=== PATIENT | female | born 1995 | race Caucasian/White ===

== ENCOUNTER 2016-11-07 18:03 | Emergency (ER) | payer BC ==
[2016-11-07 18:30] VITALS: TEMP 97.7; O2SAT 95
--- NOTE | 2016-11-07 18:30 | UCPHY ---
H & P Patient Type: New HPI/ROS: HPI CHIEF COMPLAINT: Nausea, vomiting, diarrhea, roommate has C diff HISTORY OF PRESENT ILLNESS: This patient very pleasant 19-year-old female, denies any significant medical history, she does have a recent wrist fracture, she presents to the urgent care with persistent nausea vomiting and diarrhea. She tells me this is nonbloody in no hematemesis. Diarrhea has been watery stools. Patient tells me she only had 2 episodes of vomiting. Nonbilious no no blood, have watery diarrhea multiple bouts. She states she has a little bit concerned because her roommate was diagnosed with C diff. Patient has not had a fever she denies any abdominal pain she does tell me her abdomen is rumbling Past Medical History: Denies medical history Past Surgical History: Cardiac surgery when she was a however does not remember exactly which she had surgery on Social History: Denies daily use of drugs alcohol tobacco products Family History: Noncontributory ROS REVIEW OF SYSTEMS: A comprehensive 10 point review of systems is otherwise negative aside from elements mentioned in the history of present illness. Exam Constitutional appears well nontoxic triage nursing summary reviewed, vital signs reviewed, awake/alert. Eyes normal conjunctivae and sclera, EOMI, PERRLA. HENT normal inspection, atraumatic, moist mucus membranes, no epistaxis, neck supple/ no meningismus, no raccoon eyes. Respiratory clear to auscultation bilaterally, normal breath sounds, no respiratory distress, no wheezing. Cardiovascular rate normal, regular rhythm, no murmur, no edema, distal pulses normal. Gastrointestinal soft, non-tender, no rebound, no guarding, normal bowel sounds, no distension, no pulsatile mass. Genitourinary no CVA tenderness. Musculoskeletal no midline vertebral tenderness, full range of motion, no calf swelling, no tenderness of extremities, no meningismus, good pulses, neurovascularly intact. Skin pink, warm, & dry, no rash, skin atraumatic. Neurologic awake, alert and oriented x 3, AAOx3, moves all 4 extremities equally, motor intact, sensory intact, CN II-XII intact, normal cerebellar, normal vision, normal speech. Psychiatric normal mood/affect. Heme/Lymph/Immune no lymphadenopathy. Differential diagnosis includes but is not limited to and in no particular order : Dehydration, electrolyte abnormality, C diff Bowel obstruction, appendicitis , gallbladder disease, diverticulitis, colitis, enteritis, perforated viscus, gastritis, GERD, esophagitis, urinary tract infection, pyelonephritis, kidney stones Medical Decision Making: this patient had an IV established receive IV fluids Zofran for nausea, she does not have any pain, check blood work including CBC, LFTs, lipase, electrolytes, C diff and stool studies. Re-evaluation: 2037: re-evaluation at this time this patient is resting comfortably abdomen remained soft she is not vomiting. Blood work has been reviewed. Stool studies have been sent I did explain to the patient that she will need to call here tomorrow for her C diff results. She is feeling better after IV fluids. She has not had any vomiting here. She was able to provide a stool sample. She feels comfortable going home prescription for Zofran she understands return to the emergency room urgent care presented worsening symptoms questions or concerns. Including worsening abdominal pain, fever, vomiting Source: Patient - Family History Significant Family History: No pertinent family hx Constitutional: Initial Vital Signs Temperature (C) 36.5 C 11/07/16 18:28 Heart Rate 102 H 11/07/16 18:28 Respiratory Rate 20 11/07/16 18:28 Blood Pressure 130/74 H 11/07/16 18:28 O2 Sat (%) 95 11/07/16 18:28 O2 Delivery Mode Room Air Allergies/Adverse Reactions: meperidine HCl [From Demerol] Allergy (Verified 11/07/16 18:27) morphine Allergy (Verified 11/07/16 18:27) Home Medications: Medication Instructions Recorded Adderall 10 MG (*) 11/07/16 Bcp 11/07/16 Ondansetron HCl [Zofran] 4 mg PO Q4-6PRN PRN #10 tablet 11/07/16 Medical Decision Making - Data Points Laboratory Results: Laboratory Results 11/07/16 19:30 11/07/16 19:30 11/07/16 11/07/16 20:10 19:30 WBC 5.62 10^3/uL (3.80-9.50) RBC 4.26 10^6/uL (4.18-5.33) Hgb 13.5 g/dL (12.6-16.3) Hct 38.0 % (38.0-47.0) MCV 89.2 fL (81.5-99.8) MCH 31.7 pg (27.9-34.1) MCHC 35.5 g/dL (32.4-36.7) RDW 12.9 % (11.5-15.2) Plt Count 186 10^3/uL (150-400) MPV 10.7 fL (8.7-11.7) Neut % (Auto) 81.3 H % (39.3-74.2) Lymph % (Auto) 8.0 L % (15.0-45.0) [place] % (Auto) 9.6 % (4.5-13.0) Eos % (Auto) 0.5 L % (0.6-7.6) Baso % (Auto) 0.4 % (0.3-1.7) Nucleat RBC Rel Count 0.0 % (0.0-0.2) Absolute Neuts (auto) 4.57 10^3/uL (1.70-6.50) Absolute Lymphs (auto) 0.45 L 10^3/uL (1.00-3.00) Absolute Monos (auto) 0.54 10^3/uL (0.30-0.80) Absolute Eos (auto) 0.03 10^3/uL (0.03-0.40) Absolute Basos (auto) 0.02 10^3/uL (0.02-0.10) Absolute Nucleated RBC 0.00 10^3/uL (0-0.01) Immature Gran % 0.2 % (0.0-1.1) Immature Gran # 0.01 10^3/uL (0.00-0.10) Sodium 138 mEq/L (134-144) Potassium 3.3 L mEq/L (3.5-5.2) Chloride 99 mEq/L (97-110) Carbon Dioxide 25 mEq/l (22-31) Anion Gap 14 mEq/L (8-16) BUN 10 mg/dL (7-23) Creatinine 0.6 mg/dL (0.6-1.0) Estimated GFR > 60 Glucose 93 mg/dL (70-100) Calcium 8.6 mg/dL (8.5-10.4) Total Bilirubin 0.5 mg/dL (0.1-1.4) Conjugated Bilirubin 0.3 mg/dL (0.0-0.5) Unconjugated Bilirubin 0.2 mg/dL (0.0-1.1) AST 30 IU/L (14-46) ALT 42 IU/L (9-52) Alkaline Phosphatase 88 IU/L (38-126) Total Protein 6.5 g/dL (6.3-8.2) Albumin 3.7 g/dL (3.5-5.0) Lipase 74.0 IU/L (23-300) Beta HCG, Qual NEGATIVE Urine Color YELLOW Urine Appearance CLEAR Urine pH 5.5 (5.0-7.5) Ur Specific Ensign <= 1.005 (1.002-1.030) Urine Protein NEGATIVE (NEGATIVE) Urine Ketones NEGATIVE (NEGATIVE) Urine Blood TRACE H (NEGATIVE) Urine Nitrate NEGATIVE (NEGATIVE) Urine Bilirubin NEGATIVE (NEGATIVE) Urine Urobilinogen 0.2 EU (0.2-1.0) Ur Leukocyte Esterase TRACE H (NEGATIVE) Urine RBC Pending Urine WBC Pending Ur Epithelial Cells Pending Ur Culture Indicated? Pending Urine Glucose NEGATIVE (NEGATIVE) Medications Given: Discontinued Medications Sodium Chloride (Ns) 1,000 mls @ 0 mls/hr IV ONCE ONE PRN Reason: Wide Open Stop: 11/07/16 18:35 Last Admin: 11/07/16 19:40 Dose: 1,000 mls Ondansetron HCl (Zofran) 4 mg IVP EDNOW ONE Stop: 11/07/16 18:35 Last Admin: 11/07/16 19:40 Dose: 4 mg Departure - Departure Disposition: Home, Routine, Self-Care Clinical Impression: Nausea vomiting and diarrhea Condition: Good Instructions: Dehydration (ED), Acute Nausea and Vomiting (ED), Acute Diarrhea (ED) Additional Instructions: 1.Drink lots of fluids stay well-hydrated 2. Please call here tomorrow for your results of her C diff testing 3. Return to the emergency room if develops worsening symptoms includes high fever, abdominal pain, vomiting Prescriptions: Ondansetron HCl [Zofran] 4 mg PO Q4-6PRN PRN #10 tablet PRN Reason: Nausea/Vomiting, Use 1st - PQRS PQRS Measurement: n/a
[2016-11-07] MEDS ORDERED: ONDANSETRON 4 MG/2 ML VIAL IVP ONE (18:34)
[2016-11-07] MEDS ORDERED: NS 1,000 ML IV ONE (18:34)
[2016-11-07 19:42] LABS: % IMMATURE GRANULYOCYTES 0.2 % (0.0-1.1); ABSOLUTE IMMATURE GRANULOCYTES 0.01 10^3/uL (0.00-0.10); ADD DIFF? NO; ADD MORPH? NO; ADD SCAN? NO; ATYPICAL LYMPHOCYTE FLAG 40 (0-99); FRAGMENT RBC FLAG 0 (0-99); HEMOGLOBIN 13.5 g/dL (12.6-16.3); LEFT SHIFT FLG 0 (0-99); LIPEMIA HEMOLYSIS FLAG 90 (0-99); MEAN CELL HEMOGLOBIN 31.7 pg (27.9-34.1); MEAN CELL HEMOGLOBIN CONCENTR. 35.5 g/dL (32.4-36.7); MEAN CELL VOLUME 89.2 fL (81.5-99.8); MEAN PLATELET VOLUME 10.7 fL (8.7-11.7); PLATELET CLUMPS FLAG 0 (0-99); PLATELET COUNT 186 10^3/uL (150-400); RED BLOOD CELL COUNT 4.26 10^6/uL (4.18-5.33); RED CELL DISTRIBUTION WIDTH 12.9 % (11.5-15.2)
[2016-11-07 19:58] LABS: ALANINE AMINOTRANSFERASE 42 IU/L (9-52); ALBUMIN 3.7 g/dL (3.5-5.0); ALKALINE PHOSPHATASE 88 IU/L (38-126); ANION GAP 14 mEq/L (8-16); ASPARTATE AMINOTRANSFERASE 30 IU/L (14-46); BILIRUBIN,TOTAL 0.5 mg/dL (0.1-1.4); BILIRUBIN-CONJUGATED 0.3 mg/dL (0.0-0.5); BILIRUBIN-UNCONJUGATED 0.2 mg/dL (0.0-1.1); CALCIUM 8.6 mg/dL (8.5-10.4); CARBON DIOXIDE 25 mEq/l (22-31); CHLORIDE 99 mEq/L (97-110); CREATININE 0.6 mg/dL (0.6-1.0); GLOMERULAR FILTRATION RATE > 60; GLUCOSE 93 mg/dL (70-100); POTASSIUM 3.3 mEq/L (3.5-5.2); SODIUM 138 mEq/L (134-144); TOTAL PROTEIN 6.5 g/dL (6.3-8.2)
[2016-11-07 20:32] LABS: COLOR YELLOW; LEUKOCYTE ESTERASE,URINE TRACE (NEGATIVE); NITRITE,URINE NEGATIVE (NEGATIVE); PH,URINE 5.5 (5.0-7.5)
[2016-11-07 20:42] VITALS: BP 124/72; PULSE 76; RESP 14
[2016-11-07 20:49] LABS: BACTERIA 2+ /hpf (NONE SEEN); RBC,URINE 0-1 /hpf (0-3)
[2016-11-07] MEDS ORDERED: ONDANSETRON 4MG PREPACK#2 BTL TAKEHOME ONE ×2 (20:53→21:03)
== END 2016-11-07 20:50 | disposition home or self-care (01) ==
LOC: CED 18:03
DX: R12 Heartburn (principal); R19.7 Diarrhea, unspecified
CPT/HCPCS: 80048-PO; 80076-PO; 81003-PO; 81015-PO; 83690-PO; 84703-PO; 85025-PO; 96361-PO; 96374-PO; G0463-PO; J2405